=== PATIENT | female | born 1960 | race Caucasian/White ===

== ENCOUNTER 2017-12-18 13:45 | Emergency (ER) | payer OTHER | END 2017-12-18 16:51 | disposition home or self-care (01) | LOC: E/R 16:51 | DX: S81.802A Unspecified open wound, left lower leg, initial encounter (principal); I87.8 Other specified disorders of veins; I10 Essential (primary) hypertension; X58.XXXA Exposure to other specified factors, initial encounter; Y92.9 Unspecified place or not applicable | CPT/HCPCS: 99283; Z7502 ==